=== PATIENT | female | born 1940 | race Caucasian/White ===

== ENCOUNTER 2017-12-01 15:27 | Emergency (ER) | payer OTHER ==
[~2017-12-01] VITALS: Ht 162.6 cm; Wt 60.3 kg
[~2017-12-01 15:27] MED LIST: ALBU90OI INH; ALBU90OI6 INH; ALBU90OI61 INH; ASCO500 PO; ASPI325EC PO; ATOR40TA PO; AZIT250 PO; CALCIUM; CALMAGZIN PO; CLOP75 PO; DICL.1SO OD; DULERA 100 MCG/13 GM INH; Daily Multiple1 EACH PO; FISH1000 PO; FLUSAL2505 IH; FLUT1DIS5 INH; HYDACE10B PO; HYDCHL12.5 PO; HYDCHL25 PO; LOPE2C PO; LUTEIN; MAGOXI400 PO; MECL25 PO; METO50ER PO; MULT50L PO; MULVITMIND PO; Norco 7.5-3251 EACH PO; PRED1SU OD; PRED20 PO; PRESERVISION L1 EACH PO; PROM25 PO; PSEUDOGEST; PSYL5.85P PO; Prednisone20 MG PO; Pseudoephedrine30 MG PO; SUDOGEST PO; TIOT18 IH; VISION VITAMIN1 EACH; VITAMIN D; VITAMIN D31000 UNIT PO; Ventolin Soln3 ML INH; Zithromax250 MG PO; Zofran Odt4 MG SL
[2017-12-01] MEDS ORDERED: Aspirin EC81 MG PO (16:20)
[2017-12-01 16:23] LABS: BASOPHILS ABSOLUTE AUTO 0.06 K/mm3 (0.00-0.23); BASOPHILS PERCENT AUTO 1 % (0-2); EOSINOPHILS ABSOLUTE AUTO 0.42 K/mm3 (0.00-0.68); EOSINOPHILS PERCENT AUTO 5 % (0-6); Hematocrit 32.9 % (33.0-51.0); Hemoglobin 10.9 g/dL (11.5-16.0); IMMATURE GRAN ABSOLUTE AUTO 0.07 K/mm3 (0.00-0.10); IMMATURE GRAN PERCENT AUTO 1 % (0-1); LYMPHOCYTES ABSOLUTE AUTO 0.87 K/mm3 (0.84-5.20); LYMPHOCYTES PERCENT AUTO 10 % (21-46); MONOCYTES ABSOLUTE AUTO 0.97 K/mm3 (0.16-1.47); MONOCYTES PERCENT AUTO 11 % (4-13); Mean Corpuscular HGB 31.4 pg (26.0-34.0); Mean Corpuscular HGB Conc 33.1 g/dL (31.5-36.5); Mean Corpuscular Volume 95 fL (80-100); Mean Platelet Volume 9.8 fL (9.1-12.4); NEUTROPHILS ABSOLUTE AUTO 6.81 K/mm3 (1.96-9.15); NEUTROPHILS PERCENT AUTO 74 % (41-73); Platelet Count 427 K/mm3 (150-400); RDW Coefficient Variation 11.7 % (11.7-14.2); RDW Standard Deviation 40.3 fL (35.1-46.3); Red Blood Cell Count 3.47 M/mm3 (3.80-5.20)
[2017-12-01] MEDS ORDERED: TIOT18 INH (16:23)
[2017-12-01] MEDS ORDERED: LEVFLO250 PO (16:23)
[2017-12-01 16:43] LABS: Alanine Aminotransfer (ALT/SGP 25 U/L (12-78); Albumin, Blood 3.1 g/dL (3.4-5.0); Albumin/Globulin Ratio 0.7 (0.8-1.8); Alk Phos 86 U/L (50-136); Anion Gap 7 mmol/L (6-16); Aspartate Aminotrans (AST/SGOT 24 U/L (12-37); Bilirubin, Total 0.3 mg/dL (0.1-1.0); Blood Urea Nitrogen 15 mg/dL (8-24); Bun/Creatinine Ratio 26.1 (12.0-20.0); CO2, Blood 32 mmol/L (21-32); Calcium, Blood 9.2 mg/dL (8.5-10.1); Chloride, Blood 91 mmol/L (98-108); Creatinine, Blood 0.57 mg/dL (0.40-1.00); Globulin, Blood 4.2 g/dL (2.2-4.0); Glomerular Filtration Rate >60 (60-); Glucose, Blood 98 mg/dL (70-99); Potassium, Blood 4.1 mmol/L (3.5-5.5); Sodium, Blood 130 mmol/L (136-145); Total Protein, Blood 7.3 g/dL (6.4-8.2); Troponin I <0.015 ng/mL (0.000-0.040)
[2017-12-01 16:56] LABS: Influenza A Negative (NEGATIVE); Influenza B Negative (NEGATIVE)
[2018-06-14] MEDS ORDERED: Hydrocodone-Ap1 EA23 PO (04:28)
[2018-06-14] MEDS ORDERED: METO50ER PO (12:26)
[2018-06-14] MEDS ORDERED: PANT40 PO (12:27)
[2018-06-14] MEDS ORDERED: ALEVE220 MG PO (17:27)
[2018-06-14] MEDS ORDERED: ATOR40TA PO (17:28)
[2018-06-17] MEDS ORDERED: ACET325 PO (12:32)
[2018-06-17] MEDS ORDERED: CEPACOL SORE T1 EACH MM (12:33)
[2018-06-17] MEDS ORDERED: CEFU500T30 PO (12:34)
[2018-06-17] MEDS ORDERED: FURO20 PO (12:34)
[2018-06-17] MEDS ORDERED: NITR.4SL SL (12:35)
[2018-06-17] MEDS ORDERED: DELTASONE20 MG PO (12:37)
[2018-06-17] MEDS ORDERED: AZIT500 PO (12:40)
[2018-06-17] MEDS ORDERED: Aspercreme 1035.4 GM TOP (12:41)
[2018-08-12] MEDS ORDERED: ISODIN10 PO (06:10)
[2018-08-15] MEDS ORDERED: LEVO750 PO (14:27)
[2018-08-15] MEDS ORDERED: PRED20 PO (14:28)
[2018-08-15] MEDS ORDERED: ONDA4ODT MM (14:29)
== END 2017-12-01 19:21 | disposition home or self-care (01) ==
LOC: ER 15:27
PROVIDERS: Physician Assistant
DX: J44.1 Chronic obstructive pulmonary disease with (acute) exacerbation (principal); R10.30 Lower abdominal pain, unspecified; Z88.8 Allergy status to other drugs, medicaments and biological substances; Z79.899 Other long term (current) drug therapy; Z79.82 Long term (current) use of aspirin; Z79.2 Long term (current) use of antibiotics; I10 Essential (primary) hypertension; F32.9 Major depressive disorder, single episode, unspecified; Z87.891 Personal history of nicotine dependence
CPT/HCPCS: 36415; 71046; 74018; 80053; 83880; 84484; 85025; 87804; 93005; 93010; 94640; 99284

== ENCOUNTER 2018-03-04 16:19 | Inpatient (IN) | payer OTHER ==
[~2018-03-04] VITALS: Ht 165.1 cm; Wt 59.0 kg
[~2018-03-04 16:19] MED LIST changes: +Aspirin EC81 MG PO; +LEVFLO250 PO; +TIOT18 INH
[2018-03-04 16:53] LABS: BASOPHILS ABSOLUTE AUTO 0.05 K/mm3 (0.00-0.23); BASOPHILS PERCENT AUTO 1 % (0-2); EOSINOPHILS ABSOLUTE AUTO 0.07 K/mm3 (0.00-0.68); EOSINOPHILS PERCENT AUTO 1 % (0-6); Hematocrit 22.2 % (33.0-51.0); Hemoglobin 7.1 g/dL (11.5-16.0); IMMATURE GRAN ABSOLUTE AUTO 0.07 K/mm3 (0.00-0.10); IMMATURE GRAN PERCENT AUTO 1 % (0-1); LYMPHOCYTES ABSOLUTE AUTO 0.87 K/mm3 (0.84-5.20); LYMPHOCYTES PERCENT AUTO 11 % (21-46); MONOCYTES ABSOLUTE AUTO 0.71 K/mm3 (0.16-1.47); MONOCYTES PERCENT AUTO 9 % (4-13); Mean Corpuscular Volume 97 fL (80-100); NEUTROPHILS ABSOLUTE AUTO 6.33 K/mm3 (1.96-9.15); NEUTROPHILS PERCENT AUTO 78 % (41-73); Platelet Count 262 K/mm3 (150-400); RDW Coefficient Variation 14.2 % (11.7-14.2); RDW Standard Deviation 49.9 fL (35.1-46.3); Red Blood Cell Count 2.29 M/mm3 (3.80-5.20)
[2018-03-04 17:13] LABS: Alanine Aminotransfer (ALT/SGP 28 U/L (12-78); Albumin, Blood 3.4 g/dL (3.4-5.0); Alk Phos 62 U/L (50-136); Anion Gap 5 mmol/L (6-16); Aspartate Aminotrans (AST/SGOT 26 U/L (12-37); Bilirubin, Total 0.2 mg/dL (0.1-1.0); Blood Urea Nitrogen 21 mg/dL (8-24); Bun/Creatinine Ratio 30.8 (12.0-20.0); CO2, Blood 38 mmol/L (21-32); Chloride, Blood 96 mmol/L (98-108); Creatinine, Blood 0.68 mg/dL (0.40-1.00); Globulin, Blood 3.4 g/dL (2.2-4.0); Glomerular Filtration Rate >60 (60-); Glucose, Blood 105 mg/dL (70-99); Potassium, Blood 3.7 mmol/L (3.5-5.5); Sodium, Blood 139 mmol/L (136-145); Total Protein, Blood 6.8 g/dL (6.4-8.2); Troponin I <0.015 ng/mL (0.000-0.040)
[2018-03-04 18:12] LABS: International Normalized Ratio 0.98; Prothrombin Time Results 10.1 Sec (9.7-11.5)
[2018-03-04] MEDS ORDERED: DOCU100 PO (21:53)
[2018-03-04] MEDS ORDERED: PSEU120ER PO (21:54)
[2018-03-04] MEDS ORDERED: VIT1CAPS12 (21:55)
[2018-03-04] MEDS ORDERED: CHOL10002 (21:59)
[2018-03-04 22:35] LABS: Hematocrit 23.7 % (33.0-51.0); Hemoglobin 7.7 g/dL (11.5-16.0)
[2018-03-05 04:23] LABS: Hematocrit 27.6 % (33.0-51.0); Hemoglobin 8.9 g/dL (11.5-16.0); Mean Corpuscular HGB 30.2 pg (26.0-34.0); Mean Corpuscular HGB Conc 32.2 g/dL (31.5-36.5); Mean Corpuscular Volume 94 fL (80-100); Mean Platelet Volume 10.5 fL (9.1-12.4); Platelet Count 245 K/mm3 (150-400); RDW Coefficient Variation 14.5 % (11.7-14.2); RDW Standard Deviation 48.7 fL (35.1-46.3); Red Blood Cell Count 2.95 M/mm3 (3.80-5.20); White Blood Cell Count 5.47 K/mm3 (4.00-11.30)
[2018-03-05 05:02] LABS: Anion Gap 6 mmol/L (6-16); Blood Urea Nitrogen 20 mg/dL (8-24); Bun/Creatinine Ratio 35.8 (12.0-20.0); CO2, Blood 35 mmol/L (21-32); Calcium, Blood 8.4 mg/dL (8.5-10.1); Chloride, Blood 96 mmol/L (98-108); Creatinine, Blood 0.56 mg/dL (0.40-1.00); Glomerular Filtration Rate >60 (60-); Glucose, Blood 108 mg/dL (70-99); Potassium, Blood 3.9 mmol/L (3.5-5.5); Sodium, Blood 137 mmol/L (136-145)
[2018-03-05 18:11] LABS: Hematocrit 27.9 % (33.0-51.0); Hemoglobin 9.2 g/dL (11.5-16.0)
[2018-03-06] MEDS ORDERED: Ferrous Sulfat325 MG PO (10:48)
[2018-03-06] MEDS ORDERED: PANT40 PO (10:49)
[2018-03-06] MEDS ORDERED: ALBU2.5V5 NEB (10:52)
== END 2018-03-06 12:29 | disposition home or self-care (01) | DRG 377 ==
LOC: ER 16:19 → PCU 18:27
PROVIDERS: Emergency Medicine; Hospitalist; Internal Medicine Gastroenterology; Nurse Practitioner Acute Care
PROC: 30233N1 Transfusion of Nonautologous Red Blood Cells into Peripheral Vein, Percutaneous Approach (ICD-10-PCS; 2018-03-04)
PROC: 0DJ08ZZ Inspection of Upper Intestinal Tract, Via Natural or Artificial Opening Endoscopic (ICD-10-PCS; principal; 2018-03-05 14:30)
DX: K92.2 Gastrointestinal hemorrhage, unspecified (principal); J96.01 Acute respiratory failure with hypoxia; C34.90 Malignant neoplasm of unspecified part of unspecified bronchus or lung; K57.10 Diverticulosis of small intestine without perforation or abscess without bleeding; D64.9 Anemia, unspecified; J44.9 Chronic obstructive pulmonary disease, unspecified; K22.2 Esophageal obstruction; I10 Essential (primary) hypertension; R13.10 Dysphagia, unspecified; K21.9 Gastro-esophageal reflux disease without esophagitis; F32.9 Major depressive disorder, single episode, unspecified; H81.09 Meniere's disease, unspecified ear; H35.30 Unspecified macular degeneration; Z99.81 Dependence on supplemental oxygen; Z87.891 Personal history of nicotine dependence; Z86.73 Personal history of transient ischemic attack (TIA), and cerebral infarction without residual deficits; Z79.02 Long term (current) use of antithrombotics/antiplatelets; Z79.82 Long term (current) use of aspirin; Z79.899 Other long term (current) drug therapy
CPT/HCPCS: 36415; 36430; 71046; 74176; 80048; 80053; 82272; 84484; 85014; 85018; 85025; 85027; 85610; 85730; 86850; 86900; 86901; 86923; 93005; 93010; 94640; 94760; 96374; 96375; 96376; 99285; C9113; J1100; J7030; J7120; P9016

== ENCOUNTER 2018-08-25 10:59 | Inpatient (IN) | payer OTHER ==
[~2018-08-25] VITALS: Ht 162.6 cm; Wt 60.0 kg
[~2018-08-25 10:59] MED LIST changes: +ACET325 PO; +ALBU2.5V5 NEB; +ALEVE220 MG PO; +AZIT500 PO; +Aspercreme 1035.4 GM TOP; +CEFU500T30 PO; +CEPACOL SORE T1 EACH MM; +CHOL10002; +DELTASONE20 MG PO; +DOCU100 PO; +FURO20 PO; +Ferrous Sulfat325 MG PO; +Hydrocodone-Ap1 EA23 PO; +ISODIN10 PO; +LEVO750 PO; +NITR.4SL SL; +ONDA4ODT MM; +PANT40 PO; +PSEU120ER PO; +VIT1CAPS12
[2018-08-25 13:17] LABS: BASOPHILS ABSOLUTE AUTO 0.03 K/mm3 (0.00-0.23); BASOPHILS PERCENT AUTO 0 % (0-2); EOSINOPHILS ABSOLUTE AUTO 0.05 K/mm3 (0.00-0.68); EOSINOPHILS PERCENT AUTO 0 % (0-6); Hematocrit 32.3 % (33.0-51.0); Hemoglobin 9.9 g/dL (11.5-16.0); IMMATURE GRAN ABSOLUTE AUTO 0.07 K/mm3 (0.00-0.10); IMMATURE GRAN PERCENT AUTO 1 % (0-1); LYMPHOCYTES ABSOLUTE AUTO 0.63 K/mm3 (0.84-5.20); LYMPHOCYTES PERCENT AUTO 5 % (21-46); MONOCYTES ABSOLUTE AUTO 1.22 K/mm3 (0.16-1.47); MONOCYTES PERCENT AUTO 9 % (4-13); Mean Corpuscular HGB 30.9 pg (26.0-34.0); Mean Corpuscular HGB Conc 30.7 g/dL (31.5-36.5); Mean Corpuscular Volume 101 fL (80-100); Mean Platelet Volume 9.7 fL (9.1-12.4); NEUTROPHILS ABSOLUTE AUTO 10.96 K/mm3 (1.96-9.15); NEUTROPHILS PERCENT AUTO 85 % (41-73); Platelet Count 307 K/mm3 (150-400); RDW Coefficient Variation 13.5 % (11.7-14.2); RDW Standard Deviation 50.6 fL (35.1-46.3); White Blood Cell Count 12.96 K/mm3 (4.00-11.30)
[2018-08-25 13:38] LABS: Alanine Aminotransfer (ALT/SGP 34 U/L (12-78); Albumin, Blood 3.1 g/dL (3.4-5.0); Albumin/Globulin Ratio 0.7 (0.8-1.8); Alk Phos 69 U/L (50-136); Anion Gap 4 mmol/L (6-16); Aspartate Aminotrans (AST/SGOT 36 U/L (12-37); Bilirubin, Total 0.3 mg/dL (0.1-1.0); Blood Urea Nitrogen 14 mg/dL (8-24); Bun/Creatinine Ratio 28.2 (12.0-20.0); CO2, Blood 39 mmol/L (21-32); Calcium, Blood 8.9 mg/dL (8.5-10.1); Chloride, Blood 96 mmol/L (98-108); Globulin, Blood 4.3 g/dL (2.2-4.0); Glomerular Filtration Rate >60 (60-); Glucose, Blood 112 mg/dL (70-99); Potassium, Blood 3.8 mmol/L (3.5-5.5); Sodium, Blood 139 mmol/L (136-145); Total Protein, Blood 7.4 g/dL (6.4-8.2); Troponin I <0.015 ng/mL (0.000-0.040)
[2018-08-26 05:21] LABS: BASOPHILS ABSOLUTE AUTO 0.01 K/mm3 (0.00-0.23); BASOPHILS PERCENT AUTO 0 % (0-2); EOSINOPHILS PERCENT AUTO 0 % (0-6); Hematocrit 32.8 % (33.0-51.0); Hemoglobin 9.9 g/dL (11.5-16.0); IMMATURE GRAN ABSOLUTE AUTO 0.06 K/mm3 (0.00-0.10); IMMATURE GRAN PERCENT AUTO 1 % (0-1); LYMPHOCYTES PERCENT AUTO 2 % (21-46); MONOCYTES ABSOLUTE AUTO 0.22 K/mm3 (0.16-1.47); MONOCYTES PERCENT AUTO 2 % (4-13); Mean Corpuscular HGB 30.5 pg (26.0-34.0); Mean Corpuscular HGB Conc 30.2 g/dL (31.5-36.5); Mean Corpuscular Volume 101 fL (80-100); Mean Platelet Volume 9.8 fL (9.1-12.4); NEUTROPHILS ABSOLUTE AUTO 9.69 K/mm3 (1.96-9.15); NEUTROPHILS PERCENT AUTO 95 % (41-73); Platelet Count 339 K/mm3 (150-400); RDW Coefficient Variation 13.4 % (11.7-14.2); RDW Standard Deviation 49.9 fL (35.1-46.3); Red Blood Cell Count 3.25 M/mm3 (3.80-5.20); White Blood Cell Count 10.18 K/mm3 (4.00-11.30)
[2018-08-26 05:39] LABS: Anion Gap 8 mmol/L (6-16); Blood Urea Nitrogen 14 mg/dL (8-24); Bun/Creatinine Ratio 24.3 (12.0-20.0); CO2, Blood 35 mmol/L (21-32); Calcium, Blood 9.1 mg/dL (8.5-10.1); Chloride, Blood 91 mmol/L (98-108); Creatinine, Blood 0.58 mg/dL (0.40-1.00); Glomerular Filtration Rate >60 (60-); Glucose, Blood 163 mg/dL (70-99); Potassium, Blood 4.1 mmol/L (3.5-5.5); Sodium, Blood 134 mmol/L (136-145)
[2018-08-26 16:39] LABS: PCO2 Arterial 57.1 mmHg (35-45); PO2 Arterial 74.6 mmHg (80-100); pH Blood Arterial 7.43 (7.35-7.45)
[2018-08-27 05:04] LABS: BASOPHILS ABSOLUTE AUTO 0.02 K/mm3 (0.00-0.23); BASOPHILS PERCENT AUTO 0 % (0-2); EOSINOPHILS PERCENT AUTO 0 % (0-6); Hematocrit 28.2 % (33.0-51.0); Hemoglobin 8.8 g/dL (11.5-16.0); IMMATURE GRAN ABSOLUTE AUTO 0.08 K/mm3 (0.00-0.10); IMMATURE GRAN PERCENT AUTO 1 % (0-1); LYMPHOCYTES ABSOLUTE AUTO 0.26 K/mm3 (0.84-5.20); LYMPHOCYTES PERCENT AUTO 2 % (21-46); MONOCYTES ABSOLUTE AUTO 0.52 K/mm3 (0.16-1.47); MONOCYTES PERCENT AUTO 3 % (4-13); Mean Corpuscular HGB 31.2 pg (26.0-34.0); Mean Corpuscular HGB Conc 31.2 g/dL (31.5-36.5); Mean Corpuscular Volume 100 fL (80-100); Mean Platelet Volume 9.7 fL (9.1-12.4); NEUTROPHILS ABSOLUTE AUTO 15.81 K/mm3 (1.96-9.15); NEUTROPHILS PERCENT AUTO 95 % (41-73); Platelet Count 341 K/mm3 (150-400); RDW Coefficient Variation 13.5 % (11.7-14.2); RDW Standard Deviation 50.1 fL (35.1-46.3); Red Blood Cell Count 2.82 M/mm3 (3.80-5.20); White Blood Cell Count 16.69 K/mm3 (4.00-11.30)
[2018-08-27 05:33] LABS: Albumin, Blood 2.7 g/dL (3.4-5.0); Anion Gap 7 mmol/L (6-16); Blood Urea Nitrogen 14 mg/dL (8-24); Bun/Creatinine Ratio 24.5 (12.0-20.0); CO2, Blood 36 mmol/L (21-32); Chloride, Blood 93 mmol/L (98-108); Creatinine, Blood 0.57 mg/dL (0.40-1.00); Glomerular Filtration Rate >60 (60-); Glucose, Blood 151 mg/dL (70-99); Phosphorus, Blood 2.9 mg/dL (2.5-4.9); Potassium, Blood 3.7 mmol/L (3.5-5.5); Sodium, Blood 136 mmol/L (136-145)
[2018-08-27 14:54] LABS: Vancomycin, Trough 6.1 ug/mL (5.0-10.0)
== END 2018-08-27 21:43 | disposition short-term general hospital (02) | DRG 871 ==
LOC: ER 10:59 → MEDS 16:45
PROVIDERS: Emergency Medicine; Family Medicine
DX: A41.9 Sepsis, unspecified organism (principal); J15.212 Pneumonia due to Methicillin resistant Staphylococcus aureus; J86.9 Pyothorax without fistula; J96.21 Acute and chronic respiratory failure with hypoxia; I50.33 Acute on chronic diastolic (congestive) heart failure; C34.11 Malignant neoplasm of upper lobe, right bronchus or lung; C79.51 Secondary malignant neoplasm of bone; J93.9 Pneumothorax, unspecified; J44.1 Chronic obstructive pulmonary disease with (acute) exacerbation; J44.0 Chronic obstructive pulmonary disease with (acute) lower respiratory infection; E87.1 Hypo-osmolality and hyponatremia; I25.10 Atherosclerotic heart disease of native coronary artery without angina pectoris; D63.0 Anemia in neoplastic disease; I11.0 Hypertensive heart disease with heart failure; K21.9 Gastro-esophageal reflux disease without esophagitis; Z87.891 Personal history of nicotine dependence; Z86.73 Personal history of transient ischemic attack (TIA), and cerebral infarction without residual deficits; I27.20 Pulmonary hypertension, unspecified; Z99.81 Dependence on supplemental oxygen; Z66 Do not resuscitate
CPT/HCPCS: 36415; 36600; 71046; 71250; 73502; 74176; 80048; 80053; 80069; 80202; 82803; 83605; 83880; 84145; 84484; 85025; 87070; 87077; 87147; 87186; 87205; 93005; 93010; 94640; 94760; 96365; 96366; 96367; 96368; 96375; 99285-25; J0456; J0696; J1650; J1940; J1956; J2543; J2930; J3010; J3370; J7030; J7050

== ENCOUNTER 2018-09-03 02:27 | Inpatient (IN) | payer OTHER ==
[~2018-09-03] VITALS: Ht 162.6 cm; Wt 56.0 kg
[2018-09-03 03:13] LABS: BASOPHILS ABSOLUTE AUTO 0.03 K/mm3 (0.00-0.23); BASOPHILS PERCENT AUTO 0 % (0-2); EOSINOPHILS ABSOLUTE AUTO 0.02 K/mm3 (0.00-0.68); EOSINOPHILS PERCENT AUTO 0 % (0-6); Hematocrit 29.3 % (33.0-51.0); Hemoglobin 8.7 g/dL (11.5-16.0); IMMATURE GRAN ABSOLUTE AUTO 0.03 K/mm3 (0.00-0.10); IMMATURE GRAN PERCENT AUTO 0 % (0-1); LYMPHOCYTES ABSOLUTE AUTO 0.66 K/mm3 (0.84-5.20); LYMPHOCYTES PERCENT AUTO 7 % (21-46); MONOCYTES ABSOLUTE AUTO 1.06 K/mm3 (0.16-1.47); MONOCYTES PERCENT AUTO 11 % (4-13); Mean Corpuscular HGB 30.7 pg (26.0-34.0); Mean Corpuscular HGB Conc 29.7 g/dL (31.5-36.5); Mean Platelet Volume 9.5 fL (9.1-12.4); NEUTROPHILS ABSOLUTE AUTO 8.07 K/mm3 (1.96-9.15); NEUTROPHILS PERCENT AUTO 82 % (41-73); Platelet Count 365 K/mm3 (150-400); RDW Coefficient Variation 13.6 % (11.7-14.2); RDW Standard Deviation 52.4 fL (35.1-46.3); Red Blood Cell Count 2.83 M/mm3 (3.80-5.20); White Blood Cell Count 9.87 K/mm3 (4.00-11.30)
[2018-09-03 03:15] LABS: Mean Corpuscular Volume 104 fL (80-100)
[2018-09-03 03:25] LABS: Alanine Aminotransfer (ALT/SGP 37 U/L (12-78); Albumin, Blood 2.8 g/dL (3.4-5.0); Albumin/Globulin Ratio 0.7 (0.8-1.8); Alk Phos 70 U/L (50-136); Anion Gap 3 mmol/L (6-16); Aspartate Aminotrans (AST/SGOT 35 U/L (12-37); Bilirubin, Total 0.2 mg/dL (0.1-1.0); Blood Urea Nitrogen 16 mg/dL (8-24); Bun/Creatinine Ratio 22.1 (12.0-20.0); CO2, Blood 43 mmol/L (21-32); Calcium, Blood 9.8 mg/dL (8.5-10.1); Chloride, Blood 91 mmol/L (98-108); Creatinine, Blood 0.72 mg/dL (0.40-1.00); Glomerular Filtration Rate >60 (60-); Glucose, Blood 110 mg/dL (70-99); Potassium, Blood 4.9 mmol/L (3.5-5.5); Sodium, Blood 137 mmol/L (136-145); Total Protein, Blood 6.8 g/dL (6.4-8.2)
[2018-09-03 03:43] LABS: International Normalized Ratio 1.05; Prothrombin Time Results 10.8 Sec (9.7-11.5)
[2018-09-03] MEDS ORDERED: OXYC5 PO (04:33)
[2018-09-03] MEDS ORDERED: GAVILAX17 G1 PO (04:33)
[2018-09-03] MEDS ORDERED: ALBU2.5V5 INH (04:34)
[2018-09-03] MEDS ORDERED: Bactrim 400-801 EACH PO (04:34)
[2018-09-03] MEDS ORDERED: ASPI81CH PO (04:35)
[2018-09-03] MEDS ORDERED: DOCU100 PO (04:35)
[2018-09-03] MEDS ORDERED: CHOL10002 PO (04:35)
[2018-09-03] MEDS ORDERED: ATOR40TA PO (04:35)
[2018-09-03] MEDS ORDERED: Advair Hfa 230-12 GM UD (04:36)
[2018-09-03] MEDS ORDERED: Ferrous Sulfat325 MG PO (04:36)
[2018-09-03] MEDS ORDERED: PANT40 PO (04:37)
[2018-09-03] MEDS ORDERED: FURO20 PO (04:37)
[2018-09-03] MEDS ORDERED: ISODIN10 PO (04:37)
[2018-09-03] MEDS ORDERED: METO50ER PO (04:37)
[2018-09-03] MEDS ORDERED: VIT1CAPS12 PO (04:38)
[2018-09-03] MEDS ORDERED: TIOT18 INH (04:38)
--- NOTE | 2018-09-03 06:00 | NUR ---
ED ADMIT VIA GUERNEY . EXTREME TACHEPNEA AND RT REVIEWS W/ STAFF TO ASSIST IN 85% SAT W/ EXERTION IN TRANSFER AND ESCALATING ANXIETY . REMINDED ABOUT CLOSTROPHOBIA.AND NC CAN NOT BE SNUG AT NECK. CONSTANT DESIRE TO VOID AND BED HOFFMAN OFFERED. ON BED HOFFMAN FOR SHORT INTERVALS . SMALL AMT OF VOIDING. REQ TO GET OUT OF BED . WILL EVALUATE WHEN SAT IMPROVEMENT. YELLS OUT IN ANXIOUSNESS. SON AT BEDSIDE AND ASSISTS IN CALMING. SON ASSISTS IN INTERVIEW. DENIES ANY PAIN. REPORT TO DAY RN. PLAN TO GET HER OUT OF BED TO BSC TO ASSIST IN VOIDING EASE.8 L NC SEEMS APPROPRIATE AT THIS TIME
[2018-09-03 07:19] LABS: Source, Urine Catheter
[2018-09-03 07:23] LABS: Bilirubin, Urine Neg (Neg); Blood, Urine 4+ (Neg); Glucose Qualitative, Urine Neg (Neg); Ketones, Urine Neg (Neg); Leukocyte Esterase, Urine 3+ (Neg); Nitrite, Urine Neg (Neg); Protein, Urine Neg (Neg); Urobilinogen, Urine NORM (Normal)
[2018-09-03 07:34] LABS: Appearance, Urine Hazy (Clear); Bacteria Few /hpf; Color, Urine Yellow (P-Yellow); Squamous Epithelial Cells Mod /hpf (Few)
--- NOTE | 2018-09-03 08:05 | NUR ---
INITIAL ASSESSMENT: Pt sitting up in bed with son at bedside. LS with crackles, coarsness, and wheezing throughout. Labored, purse lipped breathing. HR reg NSR. BT positive. Pulses palp. Pt up to BSC with min assist very frequently. Pt states multiple times that she is very castrophobic and does not like to have oxygen tubing too tight, gown too tight, door closed as well as many other perticular things. Will assist pt with all of her needs. Pt states that she is having 7/10 pain in her R hip. Will medicate per orders for pain. VSS. Call light in reach. Will continue to monitor.
[2018-09-03] MEDS ORDERED: ASPERCREME TOP (09:10)
[2018-09-03 09:29] LABS: Anion Gap 5 mmol/L (6-16); Blood Urea Nitrogen 16 mg/dL (8-24); CO2, Blood 43 mmol/L (21-32); Calcium, Blood 9.4 mg/dL (8.5-10.1); Chloride, Blood 87 mmol/L (98-108); Glomerular Filtration Rate >60 (60-); Glucose, Blood 176 mg/dL (70-99); Potassium, Blood 4.5 mmol/L (3.5-5.5); Sodium, Blood 135 mmol/L (136-145)
[2018-09-03 11:20] LABS: Source, Urine Catheter
[2018-09-03 11:48] LABS: Appearance, Urine Clear (Clear); Bilirubin, Urine Neg (Neg); Blood, Urine Neg (Neg); Color, Urine Yellow (P-Yellow); Glucose Qualitative, Urine Neg (Neg); Ketones, Urine Neg (Neg); Leukocyte Esterase, Urine Neg (Neg); Nitrite, Urine Neg (Neg); Protein, Urine Neg (Neg); Urobilinogen, Urine NORM (Normal)
--- NOTE | 2018-09-03 14:00 | NUR ---
update: Palliative care in to see Pt. Pt requesting comfort care and to go home on hospice. Palliative care to call physician and Pt's son. Pt denies other needs at this time. Will monitor.
--- NOTE | 2018-09-03 14:40 | NUR ---
Initial Visit: Palliative Care consult for comfort care. Pt is A&O and reports a pain level of 7/10 in her right hip. She denies any anxiety at this time. She reports accepting her prognosis. Discussion of Pt's end of life goals made. Educated Pt of her choices including comfort care measures, and continued currative treatment. Pt reports wanting to start comfort care measures now and would like to pursue hospice at home. Pt re[prts having support at home with several family members living with her. Plan of care discussed with Pt's nurse Jayme and she is in agreement. Called and spoke with Dr Colbert and he is in agreement. Received V/O from Dr Cabrera for order set of comfort care. Spoke with Pt's son and he is in agrrement as well.
--- NOTE | 2018-09-03 18:03 | NUR ---
Shift Summary: Pt resting comfortably in bed at this time. Biox 97% on 4L NC. Pt was changed to comfort care this afternoon. After this Pt seemed much more comfortable. Pt was medicated with ativan for some anxiety and "so I can Sleep". Pt denies other needs and plans to go home on hospice. Will report to night rn.
--- NOTE | 2018-09-03 19:18 | NUR ---
RECIEVED REPORT FROM AUTOMOBILE SERVICE ADVISOR, GEN. AWAITING ARRIVAL TO UNIT.
--- NOTE | 2018-09-03 20:00 | NUR ---
PT ARRIVED TO UNIT VIA STRECTHER. ASSUMING CARE OF PT.
--- NOTE | 2018-09-04 07:11 | NUR ---
SHIFT SUMMARY: PT ARRIVED TO UNIT EARLIER IN SHIFT. 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 PT IS SLEEPING MOST OF SHIFT, BUT AWAKENS FREQUENTLY c ANXIETY, STATING "I DON'T WANT TO ". PT IS RELIEVED c PRN 1MG ATIVAN, THERAPEUTIC COMMUNICATION AND AFFIRMATION, AND WARM BLANKETS. ON 4L VIA NC, BASELINE. REPOSITIONED Q2H. MEDINA CATH PATENT AND HANGING BELOW LEVEL OF WAIST. ALL CARE NEEDS, POSITION CHANGES, AND COMFORT NEEDS HAVE BEEN MET THIS SHIFT. WILL CONT TO MONITOR AND PROVIDE CARE UNTIL PRESUMED BY ONCOMING RN.
--- NOTE | 2018-09-04 14:29 | NUR ---
Pt sat up in bed and stated, "I'm ready to go." Pt encouraged to sit back and rest. I provided tactile presence for her and pt did not respond to most of my questions. Pt's two sons arrived and allowed space to reflect on pt's health decline. One was able to verbalize the expectation the pt will be placed on hospice soon. Offered to keep the pt in my thoughts and son voiced gratitude.
--- NOTE | 2018-09-04 17:13 | NUR ---
PT IS AOX2 WITH A LOT OF CONFUSION AND HALLUCINATIONS. PT RESTING IN BED, BUT CAN BE IMPULSIVE AND HAS BEEN SITTING AT THE SIDE OF THE BED MULTIPLE TIMES TODAY AND REDIRECTS WELL. PT CALLS OUT AT TIMES THINKING SHE IS AT HOME OR IN ANOTHER PLACE. PT TREATED FOR PAIN AND ANXIETY PER EMAR. THIS SEEMS TO BE EFFECTIVE AT THIS TIME. WILL MONITOR CLOSELY.
--- NOTE | 2018-09-05 03:57 | NUR ---
SHIFT SUMMARY PT MEDICATED FOR PAIN AND ANXIETY SO FAR THIS SHIFT. PT APPEARED TO BE VERY ANXIOUS, ATTEMPTING TO CLIMB OUT OF BED AND SITTING AT BEDSIDE ASKING FOR HELP. PT UNABLE TO SIT STILL BUT ALSO UNABLE TO REMAIN IN SITTING POSITION AT THE BEDSIDE DUE TO INCREASED WEAKNESS. THIS NURSE ADMINISTERED MEDICATIONS PER EMAR WHICH APPEARED TO CALM PT AND ASSIST WITH PLACING PT BACK IN BED. PT IS IN BED AT THIS TIME AND APPEARS TO BE SLEEPING COMFORTABLY. WILL CONTINUE TO MONITOR.
--- NOTE | 2018-09-05 12:53 | NUR ---
PT WARM NEW GOWN & PILLOW CASES PLACE. FAN NEST TO PT FOR COMFORT. BLANKETS REMOVED. SHEET OVER PT.
--- NOTE | 2018-09-05 16:39 | NUR ---
Pt appears comfortable. She has been medicated for pain PRN during the day, nurse reports that patient has started having secretions and has medicated with atropine drops with good effect. Blankets are now taken off due to body warmth. If fever symptom appears, please medicate with rectal Tylenol for comfort. Nurse reports that the family requested one more day of planning before taking the pt home, family not present at time of visit. Nursing reports that the family from out of town that just arrived here today were surprised at the patient's progress into end of life. Pt no longer responsive. Nurse reports that family was appropriate in their interactions and has no concerns in this area. No mottling noted, no dependent edema. To Nursing: Please monitor for changes and do not discharge patient if becoming too imminent to transfer home. Transfering patients who have become imminent has high risk of becoming uncomfortable during their dying process. If patient has started mottling or has began to have apnic breathing patterns, it may not be appropriate to transfer. Symptoms seem to be managed at this time. Will remain available.
--- NOTE | 2018-09-05 16:42 | NUR ---
SHIFT SUMMARY PT HAS BEEN MEDICATED PER EMAR NEEDED FOR DISCOMFORT & SECRETIONS. PT ONLY TOLERATED ORAL CARE TWICE THIS SHIFT. PT CURRENTLY RESTING IN BED. SLEEPING. FAMILY IN AND OUT OF THE ROOM MOST THE DAY. NO OTHER CHANGES NOTED. WILL CONTINUE TO MONITOR & MEDICATE/REPOSITION NEEDED.
--- NOTE | 2018-09-06 04:18 | NUR ---
SHIFT SUMMARY PT HAS BEEN TX PER EMAR FOR DISCOMFORT. PT HAS BEEN DRINKING WATER AND MADE COMFORTABLE. PT HAS SLEPT FOR MOST OF SHIFT WITH NO ISSUES. PT IS BREATHING EASY AND SLEEPING. BED IN LOW POSITION AND CALL LIGHT IN REACH.
[2018-09-06] MEDS ORDERED: MORP20L SL (09:22)
[2018-09-06] MEDS ORDERED: ATROPINE 0.01%-10 ML SL (09:23)
[2018-09-06] MEDS ORDERED: Acetaminophen325 M1 PO (09:24)
[2018-09-06] MEDS ORDERED: DULERA 100 MCG/13 GM INH (09:24)
[2018-09-06] MEDS ORDERED: LORA1 PO (09:25)
[2018-09-06] MEDS ORDERED: Promethegan12.5 MG PR (09:26)
[2018-09-06] MEDS ORDERED: SCOPOLAMINE1 EACH TOP (09:26)
--- NOTE | 2018-09-06 10:30 | NUR ---
PT DISCHARGED. PT DISCHARGED AT 1015. PT COMFORTABLE WITH NO PHYSICAL SIGNS OF DISCOMFORT. PT TRANSPORTED VIA AMBULANCE HOME. HOSPICE & FAMILY TO MEET PT AT HOME. ALL IVS REMOVED BEFORE DISCHARGE. PT RECIEVED BED BATH & ORAL CARE BEFORE DISPARTURE.
== END 2018-09-06 10:18 | disposition hospice, home (50) | DRG 177 ==
LOC: ER 02:27 → PCU 02:28 → MEDS 20:00
PROVIDERS: Emergency Medicine; Internal Medicine; ADMIT Hospitalist
DX: J15.212 Pneumonia due to Methicillin resistant Staphylococcus aureus (principal); J96.21 Acute and chronic respiratory failure with hypoxia; I50.33 Acute on chronic diastolic (congestive) heart failure; J44.1 Chronic obstructive pulmonary disease with (acute) exacerbation; I24.8 Other forms of acute ischemic heart disease; C34.90 Malignant neoplasm of unspecified part of unspecified bronchus or lung; C79.9 Secondary malignant neoplasm of unspecified site; E87.1 Hypo-osmolality and hyponatremia; I11.0 Hypertensive heart disease with heart failure; Z51.5 Encounter for palliative care; Z99.81 Dependence on supplemental oxygen; Z86.73 Personal history of transient ischemic attack (TIA), and cerebral infarction without residual deficits; I25.10 Atherosclerotic heart disease of native coronary artery without angina pectoris; F32.9 Major depressive disorder, single episode, unspecified; K21.9 Gastro-esophageal reflux disease without esophagitis; I27.20 Pulmonary hypertension, unspecified; Z87.891 Personal history of nicotine dependence; Z66 Do not resuscitate; D50.9 Iron deficiency anemia, unspecified; R73.9 Hyperglycemia, unspecified
CPT/HCPCS: 36415; 71045; 80048; 80053; 81001; 81003; 83605; 83880; 84484; 85025; 85610; 85730; 87040; 87086; 93005; 93010; 94640; 94760; 94762; 96365; 96367; 96375; 99285-25; J1170; J1650; J1940; J2543; J3370